=== PATIENT | male | born 1960 | race Caucasian/White ===

== ENCOUNTER 2017-04-03 08:54 | Emergency (ER) | payer OTHER ==
--- NOTE | 2017-04-03 11:38 | RAD ---
HISTORY: Right shoulder pain, trauma COMPARISONS: None VIEWS: 3, Frontal internal rotation, external rotation, and outlet views of the right shoulder FINDINGS: BONE DENSITY: Normal. BONES: There is post surgical change to the humeral head. JOINTS: There is osteoarthritis of the AC joint. ALIGNMENT: There is superior subluxation of the humerus with respect to the glenoid with narrowing of the acromiohumeral interval. There is no dislocation. SOFT TISSUES: Unremarkable. OTHER FINDINGS: None. IMPRESSION: 1. OSTEOARTHRITIS. 2. POST SURGICAL CHANGE. 3. GLENOHUMERAL SUBLUXATION WITHOUT DISLOCATION.
--- NOTE | 2017-04-03 12:31 | ED ---
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 SLipped and fell - hit elbow and Rt arm abducted at the shoulder. Had pain and a bump over front of shoulder. He pushed this in and moved his arm, causing a "pop" and what he believes was a reduction. Pain is better - 2/10, dull throbbing w/ intermittent 10/10 pain (reports this getting better - less frequent). Took ibuprofen 800mg at 8:00am. Denies N/T/W. H/o Rt rotator cuff injury w/ surgery - surgeon retired however he follows w/ [facility]. No head injury, neck injury or neuro deficits to report. 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 - <Amira Dumont - Last Filed: 04/03/17 12:25> <Maddi Velázquez - Last Filed: 04/11/17 08:39> - History of Current Complaint Chief Complaint: EDExtremityUpper Stated Complaint: POSSIBLE DISLOCATED RT SHOULDER Time Seen by Provider: 04/03/17 10:13 - Allergies/Home Medications Allergies/Adverse Reactions: Allergies Allergy/AdvReac Type Severity Reaction Status Date / Time 1 PAIN MEDICATION- NAME Allergy HIVES, Uncoded 01/21/15 11:14 UNKNOWN SWELLING PMH/Surg Hx/FS Hx/Imm Hx Cardiovascular History: Reports: Hx Hypertension - metoprolol GI History: Reports: Hx Gastroesophageal Reflux Disease - ON MEDICATION FOR Musculoskeletal History: Reports: Other Musculoskeletal History - GENERALIZED ACHES AND PAINS Sensory History: Denies: Hx Contacts or Glasses, Hx Hearing Aid Opthamlomology History: Denies: Hx Contacts or Glasses - Surgical History Surgery Procedure, Year, and Place: 01/2014- LEFT PINKY TOE CORRECTED- [facility]. 1999 AND 2000 LEFT AND RIGHT ROTATOR CUFF REPAIR- [facility]. HERNIA REPAIR - 1994-[facility]. TONSILLECTOMY- 1989- VOMITING AFTER SURGERY-[facility] [place] Hx Anesthesia Reactions: Yes - BP RISES THEN DROPS AFTER SURGERY- DIFFICULTY TIME COMING OUT Infectious Disease History: No Infectious Disease History: Denies: Traveled Outside the [place] in Last 30 Days - Social History Alcohol Use: Occasionally Substance Use Type: Reports: None Smoking Status (MU): Never Smoked Tobacco <Amira Dumont - Last Filed: 04/03/17 12:25> Review of Systems All Other Systems Reviewed And Are Negative: Yes <Maddi Velázquez - Last Filed: 04/11/17 08:39> Physical Exam Vital Signs On Initial Exam: Initial Vitals Temp Pulse Resp BP Pulse Ox 98.5 F 64 20 130/83 100 04/03/17 09:19 04/03/17 09:19 04/03/17 09:19 04/03/17 09:19 04/03/17 09:19 Appearance: Positive: Well-Appearing, No Pain Distress, Well-Nourished Skin: Positive: Warm, Skin Color Reflects Adequate Perfusion, Dry Head/Face: Positive: Normal Head/Face Inspection Eyes: Positive: Normal, EOMI, SOPHIE - no photophobia, Conjunctiva Clear Musculoskeletal: Positive: Strength/ROM Intact - phalanges, wrist, elbow and NTTP, Limited @ - Rt shoulder limited by my choice - do not want to disurpt injury Neurological: Positive: Normal, Sensory/Motor Intact, Alert, Oriented to Person Place, Time, CN Intact II-III - [place] Coma Scale Coma Scale Total: 15 <Amira Dumont - Last Filed: 04/03/17 12:25> Vital Signs On Initial Exam: Initial Vitals Temp Pulse Resp BP Pulse Ox 98.5 F 64 20 130/83 100 04/03/17 09:19 04/03/17 09:19 04/03/17 09:19 04/03/17 09:19 04/03/17 09:19 <Maddi Velázquez - Last Filed: 04/11/17 08:39> Diagnostics - Vital Signs Vital Signs Temp Pulse Resp BP Pulse Ox 04/03/17 09:19 98.5 F 64 20 130/83 100 <Amira Dumont - Last Filed: 04/03/17 12:25> - Vital Signs Vital Signs Temp Pulse Resp BP Pulse Ox 04/03/17 12:58 97 F 66 17 136/67 98 04/03/17 09:19 98.5 F 64 20 130/83 100 <Maddi Velázquez - Last Filed: 04/11/17 08:39> Course/Dx <Amira Dumont - Last Filed: 04/03/17 12:25> <Maddi Velázquez - Last Filed: 04/11/17 08:39> - Diagnoses Provider Diagnoses: Shoulder dislocation Discharge <Amira Dumont - Last Filed: 04/03/17 12:25> <Maddi Velázquez - Last Filed: 04/11/17 08:39> - Discharge Plan Condition: Stable Disposition: HOME Patient Education Materials: Shoulder Dislocation (ED) Forms: *Work Release Referrals: Luigi Munguia MD [Medical Doctor] - Additional Instructions: Keep Right arm in shoulder immobilizer until seen by orthopedics. Call today to schedule an appointment for this week. In the meantime, rest, ice, and you may take ibuprofen 600mg every 6 hours pain and swelling. May alternate with acetaminophen 650mg every 6 hours as needed *If you develop numbness, tingling, weakness in fingers or wrist or itractable pain, return to ED
[2017-04-03 12:59] VITALS: BP 136/67
== END 2017-04-03 13:00 | disposition home or self-care (01) ==
LOC: ED 08:54
DX: S43.084A Other dislocation of right shoulder joint, initial encounter (principal); W01.0XXA Fall on same level from slipping, tripping and stumbling without subsequent striking against object, initial encounter; Y92.9 Unspecified place or not applicable; M19.011 Primary osteoarthritis, right shoulder
CPT/HCPCS: 99282